=== PATIENT | male | born 1955 | race African-American/Black ===

== ENCOUNTER 2016-09-13 04:56 | Inpatient (IN) | payer OTHER ==
[~2016-09-13] VITALS: Ht 182.9 cm; Wt 132.0 kg
[2016-09-13] MEDS ORDERED: IPRATROPIUM BROM 0.5 MG/2.5ML INH SOL NEB ONE (08:00)
[2016-09-13] MEDS ORDERED: ALBUTEROL SULF 2.5 MG/0.5ML(0.5%) NEB SOLN NEB ONE (08:00)
[2016-09-13] MEDS ORDERED: methylPREDNISolone SOD SUCC 125 MG/2 ML VL IV ONE (08:00)
[2016-09-13] MEDS ORDERED: cefTRIAXone 1GM/50ML D5W 50 ML IV ONE (08:00)
[2016-09-13 08:42] LABS: Basophils # (auto) 0 uL; Basophils % (auto) 0.3 % (0.0-2.0); Eosinophils # (auto) 0.2 uL; Eosinophils % (auto) 2.1 % (0.0-7.0); Hematocrit 43.2 % (41.0-53.0); Hemoglobin 14.4 g/dL (13.5-17.5); Lymphocytes # (auto) 1.7 uL; Lymphocytes % (auto) 18.8 % (10.0-50.0); Mean Corpuscular Hemoglobin 29.7 pg (28.0-32.0); Mean Corpuscular Hgb Conc. 33.2 g/dL (32.0-36.0); Mean Corpuscular Volume 89.3 fL (80.0-100.0); Monocytes # (auto) 0.5 uL; Neutrophils # (auto) 6.5 uL; Neutrophils % (auto) 72.8 % (37.0-80.0); Platelet Count (auto) 419 10^3/uL (140-450); Red Cell Distribution Width 14.7 % (11.6-16.0); White Blood Cell 8.9 10^3/uL (4.4-10.8)
[2016-09-13 08:56] LABS: Urine Bilirubin Negative (Negative); Urine Blood Negative /uL (Negative); Urine Color Yellow (Yellow); Urine Glucose Normal (Normal); Urine Ketone Negative (Negative); Urine Mucus FEW (None Seen); Urine Nitrite Negative (Negative); Urine RBC 14 /hpf (0 - 3); Urine pH 6.5 (5.0-8.0)
[2016-09-13 09:11] LABS: Albumin 3.7 g/dL (3.4-5.0); BUN/Creatinine Ratio 13.4; Bilirubin, Total 0.7 mg/dL (0.2-1.0); Calcium 9.4 mg/dL (8.5-10.1); Magnesium 2.7 mg/dL (1.6-2.6); Potassium 3.7 mmol/L (3.5-5.1); Total Protein 7.6 g/dL (6.4-8.2)
[2016-09-13 09:17] LABS: B-Type Natriuretic Peptide 7.4 pg/mL (0-100)
[2016-09-13 09:38] LABS: Temperature: 22.7 C (20.0-25.0)
[2016-09-13] MEDS ORDERED: SODIUM CHLORIDE 0.9% 1,000 ML IV ONE (10:30)
[2016-09-13] MEDS ORDERED: PIPERACILLIN-TAZOB 3.375GM 100 ML IV ONE (11:00)
[2016-09-13] MEDS ORDERED: HYDROcodone-ACET 5/325MG TAB PO PRN (11:00)
[2016-09-13] MEDS ORDERED: PROMETHAZINE HCL 25 MG/ML 1ML IV PRN (11:00)
[2016-09-13] MEDS ORDERED: VANCOMYCIN PER PHARMACY 0 MG IV SCH (11:00)
[2016-09-13] MEDS ORDERED: OSELTAMIVIR 75 MG CAP PO ONE (11:00)
[2016-09-13] MEDS ORDERED: TEMAZEPAM 15 MG CAP PO PRN (11:00)
[2016-09-13] MEDS ORDERED: ALBUTEROL SULF 2.5 MG/0.5ML(0.5%) NEB SOLN NEB PRN (11:00)
[2016-09-13] MEDS ORDERED: ACETAMINOPHEN 500 MG TAB PO PRN (11:00)
[2016-09-13] MEDS ORDERED: LORazepam 0.5 MG TAB PO PRN (11:00)
[2016-09-13] MEDS ORDERED: MORPHINE SULF INJ 2 MG/ML SYRINGE 1ML IV PRN ×2 (11:00→11:45)
[2016-09-13] MEDS ORDERED: LACTULOSE 20Gm/30ML SOLN PO PRN (11:00)
[2016-09-13] MEDS ORDERED: VANCOMYCIN 1GM/250ML D5W 250 ML IV ONE (11:00)
[2016-09-13] MEDS: ALBUTEROL SULF 2.5 MG/0.5ML(0.5%) NEB SOLN NEB SCH ×2 (11:22→20:06)
[2016-09-13] MEDS: IPRATROPIUM BROM 0.5 MG/2.5ML INH SOL NEB SCH ×2 (11:23→20:06)
[2016-09-13] MEDS: ENOXAPARIN SOD 40 MG/0.4 ML SYRINGE SC SCH (11:38)
[2016-09-13] MEDS ORDERED: NITROGLYCERIN 0.4 MG SL TAB SL PRN (11:45)
[2016-09-13] MEDS: AZITHROMYCIN 500MG/D5W 250ML 250 ML IV SCH (13:03)
[2016-09-13] MEDS: SODIUM CHLORIDE 0.9% 1,000 ML IV SCH (14:50)
[2016-09-13] MEDS ORDERED: VANCOMYCIN 1,250 MG in D5W 5% 250 ML IV SCH (15:00)
[2016-09-13 17:00] VITALS: BP 126/70
[2016-09-13] MEDS ORDERED: PIPERACILLIN-TAZOB 3.375GM 100 ML IV SCH (17:00)
[2016-09-13] MEDS ORDERED: ARIP20TA5 PO (18:43)
[2016-09-13] MEDS ORDERED: POTA10TA34 PO (18:43)
[2016-09-13] MEDS ORDERED: ALFU10TA10 PO (18:43)
[2016-09-13] MEDS ORDERED: FURO40TA4 PO (18:43)
[2016-09-13] MEDS ORDERED: LEV100T PO (18:43)
[2016-09-13] MEDS ORDERED: CHLO25TA22 PO (18:43)
[2016-09-13] MEDS ORDERED: ASPI-231 PO (18:43)
[2016-09-13 21:00] VITALS: BP 126/70
[2016-09-13] MEDS ORDERED: POTASSIUM CHL 10 Meq TABLET PO ONE (21:30)
[2016-09-13] MEDS ORDERED: ASPirin-EC 81 mg tab PO ONE (21:30)
[2016-09-13] MEDS ORDERED: FUROSEMIDE 40 MG TAB PO ONE (21:30)
[2016-09-13 21:48] VITALS: BP 132/79
[2016-09-13] MEDS: methylPREDNISolone SOD SUCC 40 MG/ML VL IV SCH (21:58)
[2016-09-13] MEDS ORDERED: ALFUZOSIN HYDROCHLORIDE 10 MG PO SCH (22:00)
[2016-09-13] MEDS ORDERED: OSELTAMIVIR 75 MG CAP PO SCH (22:00)
[2016-09-14] MEDS: SODIUM CHLORIDE 0.9% 1,000 ML IV SCH (00:16)
[2016-09-14] MEDS: ALBUTEROL SULF 2.5 MG/0.5ML(0.5%) NEB SOLN NEB SCH ×3 (00:56→12:07)
[2016-09-14] MEDS: IPRATROPIUM BROM 0.5 MG/2.5ML INH SOL NEB SCH ×3 (00:56→12:07)
[2016-09-14 05:47] VITALS: BP 139/88
[2016-09-14] MEDS ORDERED: LEVOTHYROXINE SODIUM 100 MCG TAB PO SCH (07:00)
[2016-09-14 08:34] VITALS: BP 138/82
[2016-09-14] MEDS: ENOXAPARIN SOD 40 MG/0.4 ML SYRINGE SC SCH (09:36)
[2016-09-14] MEDS ORDERED: FUROSEMIDE 40 MG TAB PO SCH (10:00)
[2016-09-14] MEDS ORDERED: ASPirin-EC 81 mg tab PO SCH (10:00)
[2016-09-14] MEDS ORDERED: POTASSIUM CHL 10 Meq TABLET PO SCH (10:00)
[2016-09-14] MEDS: methylPREDNISolone SOD SUCC 40 MG/ML VL IV SCH (10:05)
[2016-09-14] MEDS: AZITHROMYCIN 500MG/D5W 250ML 250 ML IV SCH (10:06)
[2016-09-14 10:07] LABS: PSA Free 0.63 ng/mL; Prostate Specific Antigen 2.8 ng/mL (0.0-4.0)
[2016-09-14 11:53] VITALS: BP 138/82
[2016-09-14 13:12] VITALS: BP 141/81
== END 2016-09-14 13:55 | disposition home or self-care (01) | DRG 190 ==
LOC: ER 04:58 → TELE 04:59 → TELE-WESTW 12:32 → TELE-E-ADS 12:38 → TELE-WESTW 15:38
PROVIDERS: ADMIT Internal Medicine; ATTEND Internal Medicine Geriatric Medicine
DX: J44.1 Chronic obstructive pulmonary disease with (acute) exacerbation (principal); J18.9 Pneumonia, unspecified organism; M54.5 Low back pain; G89.29 Other chronic pain; E03.9 Hypothyroidism, unspecified; F32.9 Major depressive disorder, single episode, unspecified; F17.210 Nicotine dependence, cigarettes, uncomplicated; E66.01 Morbid (severe) obesity due to excess calories; R31.29 Other microscopic hematuria; N40.0 Benign prostatic hyperplasia without lower urinary tract symptoms; Z85.47 Personal history of malignant neoplasm of testis; Z68.39 Body mass index [BMI] 39.0-39.9, adult; I15.9 Secondary hypertension, unspecified; E66.9 Obesity, unspecified
CPT/HCPCS: 36415; 36600; 71020; 80053; 81001; 82805; 83605; 83735; 83880; 84154; 84443; 84484; 85025; 85049; 85379; 87040; 87400; 93005; 94640; 96361; 96365; 96367; 96375; 99291; J0696; J2543; J7060

== ENCOUNTER 2016-10-17 18:03 | Emergency (ER) | payer OTHER ==
[~2016-10-17] VITALS: Ht 182.9 cm; Wt 129.3 kg
[~2016-10-17 18:03] MED LIST: ALFU10TA10 PO; ARIP20TA5 PO; ASPI-231 PO; CHLO25TA22 PO; FURO40TA4 PO; LEV100T PO; POTA10TA34 PO
[2016-10-17 18:38] VITALS: BP 156/84
== END 2016-10-17 19:10 | disposition home or self-care (01) ==
LOC: EDUNIT# 18:03 → ER 18:05
DX: G89.29 Other chronic pain (principal); M54.5 Low back pain; Z76.0 Encounter for issue of repeat prescription; F17.200 Nicotine dependence, unspecified, uncomplicated; I10 Essential (primary) hypertension; E07.9 Disorder of thyroid, unspecified; Z79.899 Other long term (current) drug therapy

== ENCOUNTER 2016-10-21 19:03 | Emergency (ER) | payer MEDICARE, OTHER ==
[~2016-10-21] VITALS: Ht 182.9 cm; Wt 129.3 kg
[2016-10-21 19:33] VITALS: BP 125/70
[2016-10-21] MEDS ORDERED: KETOROLAC TROMETH 60MG/2ML VIAL IM ONE (22:00)
== END 2016-10-21 22:37 | disposition home or self-care (01) ==
LOC: ER 19:07
DX: M19.011 Primary osteoarthritis, right shoulder (principal); S43.421A Sprain of right rotator cuff capsule, initial encounter; I10 Essential (primary) hypertension; E07.9 Disorder of thyroid, unspecified; F17.200 Nicotine dependence, unspecified, uncomplicated; Z79.82 Long term (current) use of aspirin; Z79.899 Other long term (current) drug therapy; X58.XXXA Exposure to other specified factors, initial encounter; Y93.89 Activity, other specified; Y99.8 Other external cause status; Y92.89 Other specified places as the place of occurrence of the external cause
CPT/HCPCS: 73030; 96372; 99284; J1885

== ENCOUNTER 2016-11-15 01:03 | Emergency (ER) | payer MEDICARE ==
[~2016-11-15] VITALS: Ht 182.9 cm; Wt 129.3 kg
[2016-11-15 01:35] VITALS: BP 128/76
== END 2016-11-15 04:23 | disposition home or self-care (01) ==
LOC: ER 01:08
DX: Z76.0 Encounter for issue of repeat prescription (principal); I10 Essential (primary) hypertension; E07.9 Disorder of thyroid, unspecified; F17.200 Nicotine dependence, unspecified, uncomplicated; Z79.82 Long term (current) use of aspirin; Z79.899 Other long term (current) drug therapy